=== PATIENT | male | born 1965 | race Caucasian/White ===

== ENCOUNTER 2022-03-04 11:50 | Emergency (ER) | payer OTHER ==
[~2022-03-04] VITALS: Ht 182.9 cm; Wt 81.6 kg
[2022-03-04 11:50] VITALS: BP 136/93
== END 2022-03-04 12:50 | disposition left against medical advice (07) ==
LOC: ER 11:53
DX: S61.412A Laceration without foreign body of left hand, initial encounter (principal); Z53.21 Procedure and treatment not carried out due to patient leaving prior to being seen by health care provider; W26.8XXA Contact with other sharp object(s), not elsewhere classified, initial encounter; Y93.89 Activity, other specified; Y92.89 Other specified places as the place of occurrence of the external cause; Y99.8 Other external cause status